=== PATIENT | male | born 1970 | race African-American/Black ===

== ENCOUNTER → 2020-12-05 | Emergency (ER) | payer BC ==
[~2020-12-05] VITALS: Ht 182.9 cm; Wt 127.0 kg
[~2020-12-05] MED LIST: ZESTRIL10 M1
== END | disposition home or self-care (01) ==
LOC: ER 03:21
DX: S09.8XXA Other specified injuries of head, initial encounter (principal); Y08.89XA Assault by other specified means, initial encounter; Y93.89 Activity, other specified; Y92.488 Other paved roadways as the place of occurrence of the external cause; Y99.8 Other external cause status